=== PATIENT | female | born 1945 | race African-American/Black ===

== ENCOUNTER → 2016-05-10 | Day surgery (SDC) | payer MEDICARE, MEDICAID ==
[~2016-05-10] VITALS: Ht 165.1 cm; Wt 101.2 kg
[~2016-05-10] MED LIST: ACET1TAB14 PO; AMLO-79 PO; BACL-141 PO; BUPIVACAINE HCL/PF 0.5% (5MG/ML) 10ML ONE; CARI350T PO; CARV25TA47 PO; CHLO25TA16 PO; CHOL20004 PO; CLINDAMYCIN 900 MG in DEXTROSE 5% WATER 50 ML IV ONE; DIPH1TAB PO; DIPH25CA83 PO; HYDROMORPHONE HCL/PF 2MG/ML CPJ IV PRN; LABETALOL HCL 20MG/4ML CARPUJECT IV PRN; LACTATED RINGERS 1,000 ML IV SCH; LIDOCAINE HCL 1% 20ML VIAL (Pyxis) INJ ONE; MEPERIDINE HCL/PF 25MG/ML CPJ IV PRN; ONDANSETRON HCL 4MG/2ML VIAL IV PRN; OXYB5TAB11 PO; OXYC1TAB PO; PRO-AIR INH; SKIN ADHESIVE 0.7 GM EA TOP ONE; ZOLP5TAB2 PO
[2016-05-10 06:38] LABS: BASOPHILS % 0.8 % (0.0-2.0); DIFFERENTIAL COMMENT 0; EOSINOPHILS % 2.2 % (0.0-5.0); HEMATOCRIT. 35.9 % (36.0-48.0); HEMOGLOBIN. 11.1 g/dL (12.0-16.0); LYMPHOCYTES % 43.6 % (20.0-50.0); MEAN CORPUSCULAR HEMOGLOBIN 23.4 pg (28.0-32.0); MEAN CORPUSCULAR HGB CONC 31.1 g/dL (31.0-37.0); MEAN CORPUSCULAR VOLUME 75.5 fL (81.0-99.0); MEAN PLATELET VOLUME 9.2 fl (7.4-10.4); MONOCYTES % 7.2 % (2.0-8.0); NEUTROPHILS % 46.2 % (40.0-76.0); PLATELET 183 x1000/uL (130-400); RED BLOOD CELL COUNT 4.75 mill/uL (4.2-5.4); RED CELL DISTRIBUTION WIDTH 13.6 % (11.6-14.6); WHITE BLOOD COUNT 6.8 x1000/uL (4.5-11.0)
[2016-05-10 06:43] LABS: INR 1.1; PARTIAL THROMBOPLASTIN TIME 27.1 sec (24.0-34.0); PROTHROMBIN TIME 11.4 sec
[2016-05-10 06:48] LABS: ANION GAP 11; CALCIUM 8.9 mg/dL (8.5-10.1); CARBON DIOXIDE 27 mEq/L (21-32); CHLORIDE 107 mEq/L (98-107); INDEX HEMOLYSI 1 (1-3); INDEX ICTERIC 1 (1-4); INDEX LIPEMIC 1 (1-3); UREA NITROGEN BLOOD 35 mg/dL (7-21); eGFR > 60 mL/min (>60)
[2016-05-10 07:18] LABS: CLARITY URINE CLEAR (CLEAR); COLOR URINE YELLOW (YELLOW); GLUCOSE URINE NEGATIVE (NEGATIVE); KETONES URINE NEGATIVE (NEGATIVE); LEUKOCYTE ESTERASE URINE NEGATIVE (NEGATIVE); NITRITE URINE NEGATIVE (NEGATIVE); OCCULT BLOOD URINE NEGATIVE (NEGATIVE); PROTEIN URINE NEGATIVE (NEGATIVE)
== END | disposition home or self-care (01) ==
LOC: OR 05:16
PROVIDERS: ATTEND Specialist
DX: L72.3 Sebaceous cyst (principal); I10 Essential (primary) hypertension; E66.9 Obesity, unspecified; J44.9 Chronic obstructive pulmonary disease, unspecified; D64.9 Anemia, unspecified
CPT/HCPCS: 11424; 12042; 36415; 80048; 81003; 85025; 85610; 85730; 88304; 93005; G0168; J1100; J2250; J2405; J3010; J3490; J7120; J2704; J7060

== ENCOUNTER → 2016-05-13 | Outpatient (CLI) | payer MEDICARE, MEDICAID ==
[~2016-05-13] MED LIST changes: -BACL-141 PO; -BUPIVACAINE HCL/PF 0.5% (5MG/ML) 10ML ONE; -CLINDAMYCIN 900 MG in DEXTROSE 5% WATER 50 ML IV ONE; -HYDROMORPHONE HCL/PF 2MG/ML CPJ IV PRN; -LABETALOL HCL 20MG/4ML CARPUJECT IV PRN; -LACTATED RINGERS 1,000 ML IV SCH; -LIDOCAINE HCL 1% 20ML VIAL (Pyxis) INJ ONE; -MEPERIDINE HCL/PF 25MG/ML CPJ IV PRN; -ONDANSETRON HCL 4MG/2ML VIAL IV PRN; -SKIN ADHESIVE 0.7 GM EA TOP ONE
== END | disposition home or self-care (01) ==
LOC: MAMMO 06:41
PROVIDERS: ATTEND Specialist
DX: Z12.31 Encounter for screening mammogram for malignant neoplasm of breast (principal); K82.4 Cholesterolosis of gallbladder; Z90.710 Acquired absence of both cervix and uterus
CPT/HCPCS: 76700; 76856; G0202

== ENCOUNTER → 2017-01-16 | Outpatient (CLI) | payer MEDICARE, MEDICAID ==
[~2017-01-16] MED LIST changes: -CHLO25TA16 PO; +CHLO25TA2 PO; +IOHEXOL-300 100 ML BOTTLE ONE
== END | disposition home or self-care (01) ==
LOC: CT 06:49
PROVIDERS: ATTEND Specialist
DX: I28.1 Aneurysm of pulmonary artery (principal); I25.10 Atherosclerotic heart disease of native coronary artery without angina pectoris
CPT/HCPCS: 71270; Q9967

== ENCOUNTER → 2017-05-30 | Outpatient (CLI) | payer MEDICARE, MEDICAID ==
[~2017-05-30] MED LIST changes: -IOHEXOL-300 100 ML BOTTLE ONE
== END | disposition home or self-care (01) ==
LOC: MAMMO 11:42
PROVIDERS: ATTEND Specialist
DX: Z12.31 Encounter for screening mammogram for malignant neoplasm of breast (principal); J44.9 Chronic obstructive pulmonary disease, unspecified
CPT/HCPCS: 77067